=== PATIENT | female | born 2000 | race Caucasian/White ===

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

== ENCOUNTER 2019-09-12 09:34 | Emergency (ER) | payer BC, OTHER ==
[2019-09-12 10:04] VITALS: PULSE 107
--- NOTE | 2019-09-12 10:41 | EDM.PDOC ---
ED HPI GENERAL MEDICAL PROBLEM - General Chief Complaint: Respiratory Problem Stated Complaint: COUGH,SOB, SORE THROAT Time Seen by Provider: 09/12/19 10:00 Source of Information: Reports: Patient History Limitations: Reports: No Limitations - History of Present Illness INITIAL COMMENTS - FREE TEXT/NARRATIVE: Lavonne comes into [facility] ED for Covid 19 screening. She has had some loss of sense of taste, a cough for 3 days, nonproductive, and without fever or SOB. She has had close exposures to a friend with + Covid 19 report and their children. She has no other comorbidities, and is a smoker. Upper & lower back Pain Score (Numeric/FACES): 4 - Related Data Allergies Allergy/AdvReac Type Severity Reaction Status Date / Time vicodin Allergy Hives Uncoded 09/12/19 09:58 Home Meds: Home Meds hydrOXYzine pamoate [Hydroxyzine Pamoate] 25 mg PO Q6HR PRN #60 capsule [Rx] Cyclobenzaprine [Flexeril] 10 mg PO BEDTIME 09/12/19 [History] PARoxetine HCL [Paroxetine HCl] 20 mg DAILY 09/12/19 [History] Past Medical History - Past Health History Medical/Surgical History: Denies Medical/Surgical History Genitourinary History: Reports: Other (See Below) Other Genitourinary History: hx bladder spasms Musculoskeletal History: Reports: Back Pain, Chronic Psychiatric History: Reports: Anxiety, Bipolar, Depression, Panic Attack, Suicide Attempt Endocrine/Metabolic History: Reports: Obesity/BMI 30+ - Past Surgical History HEENT Surgical History: Reports: Adenoidectomy, Oral Surgery, Tonsillectomy Social & Family History - Family History Family Medical History: Noncontributory - Tobacco Use Smoking Status *Q: Current Every Day Smoker Years of Tobacco use: 4 Packs/Tins Daily: 1 - Caffeine Use Caffeine Use: Reports: Coffee, Energy Drinks, Soda, Tea - Alcohol Use Days Per Week of Alcohol Use: 2 Number of Drinks Per Day: 1 Total Drinks Per Week: 2 - Recreational Drug Use Recreational Drug Use: Yes Recreational Drug Type: Reports: Marijuana/Hashish Recreational Drug Use Frequency: Daily ED ROS GENERAL - Review of Systems Review Of Systems: Comprehensive ROS is negative, except as noted in HPI. ED EXAM, GENERAL - Physical Exam Exam: See Below Exam Limited By: No Limitations General Appearance: Alert, WD/WN, No Apparent Distress, Obese Eye Exam: Bilateral Eye: EOMI, Normal Inspection, PERRL Ears: Normal External Exam, Normal TMs Nose: Normal Inspection Throat/Mouth: Normal Inspection, Normal Lips, Normal Teeth, Normal Gums, Normal Oropharynx, Normal Voice, No Airway Compromise Head: Normocephalic Neck: Normal Inspection, Supple, Non-Tender, Full Range of Motion Respiratory/Chest: No Respiratory Distress, Lungs Clear, Normal Breath Sounds, No Accessory Muscle Use, Chest Non-Tender Cardiovascular: Regular Rate, Rhythm, No Murmur Back Exam: Normal Inspection Extremities: Normal Inspection Neurological: Alert, Oriented, CN II-XII Intact, Normal Cognition, Normal Gait, No Motor/Sensory Deficits Psychiatric: Normal Affect, Normal Mood Skin Exam: Warm, Dry, Intact, Normal Color, No Rash Lymphatic: No Adenopathy Course - Vital Signs Text/Narrative:: A Covid 19 swab was performed. No other tests or meds were administered. Last Recorded V/S: Last Vital Signs Temp 36.7 C 09/12/19 09:49 Pulse 107 H 09/12/19 09:49 Resp 18 09/12/19 09:49 BP 118/65 09/12/19 09:49 Pulse Ox 100 09/12/19 09:49 - Orders/Labs/Meds Orders: Active Orders 24 hr Category Date Time Status CORONAVIRUS COVID-19, NGOZI Routine Lab 09/12/19 10:30 Received INPATIENT Routine Lab 09/12/19 10:30 Received Departure - Departure Time of Disposition: 10:40 Disposition: Home, Self-Care 01 Condition: Good Clinical Impression: Bronchitis, Cough with exposure to COVID-19 virus - Discharge Information *PRESCRIPTION DRUG MONITORING PROGRAM REVIEWED*: Not Applicable *COPY OF PRESCRIPTION DRUG MONITORING REPORT IN PATIENT XI: Not Applicable Instructions: Cough, Adult, [id number] Forms: ED Department Discharge Additional Instructions: Activity as tolerated. Increase fluids. Tylenol as needed for pain or fever. Will receive call when lab results are back. Follow up with regular MD at clinic as needed. Sepsis Event Note - Evaluation Sepsis Screening Result: No Definite Risk - Focused Exam Vital Signs: Vital Signs Temp Pulse Resp BP Pulse Ox 09/12/19 09:49 36.7 C 107 H 18 118/65 100 Date Exam was Performed: 04/25/20 Time Exam was Performed: 10:36 - Problem List & Annotations (1) Bronchitis SNOMED Code(s): 78074033 Code(s): J40 - BRONCHITIS, NOT SPECIFIED ACUTE OR CHRONIC Status: Acute Annotation/Comment:: Mild bronchitis, may be related to Covid 19 exposure, screening performed. I advised sxs cares and stay at home status pending results. (2) Cough with exposure to COVID-19 virus SNOMED Code(s): 71608880 Code(s): R05 - COUGH; Z20.828 - CONTACT W AND EXPOSURE TO OTH VIRAL COMMUNICABLE DISEASES Status: Acute Annotation/Comment:: Covid 19 screening performed, and will continue stay at home status pending results. - Problem List Review Problem List Initiated/Reviewed/Updated: Yes - My Orders Last 24 Hours: My Active Orders 09/12/19 10:30 CORONAVIRUS COVID-19, NGOZI Routine INPATIENT Routine - Assessment/Plan Last 24 Hours: My Active Orders 09/12/19 10:30 CORONAVIRUS COVID-19, NGOZI Routine INPATIENT Routine Plan: Follow up with Covid 19 results available.
[2019-09-12 11:09] VITALS: BP 122/74
== END 2019-09-12 10:42 | disposition home or self-care (01) ==
LOC: FB.ED 09:34
DX: J40 Bronchitis, not specified as acute or chronic (principal); Z20.828 Contact with and (suspected) exposure to other viral communicable diseases; E66.9 Obesity, unspecified; F31.9 Bipolar disorder, unspecified; F41.9 Anxiety disorder, unspecified; F17.210 Nicotine dependence, cigarettes, uncomplicated; Z88.6 Allergy status to analgesic agent
CPT/HCPCS: 99283; U0002

== ENCOUNTER 2020-06-13 18:33 | Emergency (ER) | payer OTHER ==
[2020-06-13 19:03] VITALS: BP 124/70; PULSE 128
[2020-06-13] MEDS ORDERED: cefTRIAXone 2 GM Vial IVPUSH STA (19:08)
[2020-06-13] MEDS ORDERED: Sulfamethoxazole/Trimethoprim 800-160 MG Tab PO STA (19:08)
[2020-06-13] MEDS ORDERED: Ketorolac 30 MG/ML SDV IVPUSH STA (19:12)
--- NOTE | 2020-06-13 19:17 | EDM.PDOC ---
ED HPI GENERAL MEDICAL PROBLEM - General Chief Complaint: General Stated Complaint: SPIDER BITE Time Seen by Provider: 06/13/20 19:00 Source of Information: Reports: Patient History Limitations: Reports: No Limitations - History of Present Illness INITIAL COMMENTS - FREE TEXT/NARRATIVE: Patient presented to the ED because of erythema, swelling, pain over the right lower quadrant of her abdomen. It started as a tiy boil 3 days ago which she poked and it progressed to a cellulitis. There is no associated fever,chills. She is otherwise heathy and is not taking any medication. 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(s) Right Lower Abdomen Pain Score (Numeric/FACES): 5 - Related Data Allergies Allergy/AdvReac Type Severity Reaction Status Date / Time vicodin Allergy Hives Uncoded 06/13/20 18:52 Home Meds: Home Meds Sulfamethoxazole/Trimethoprim [Bactrim Ds Tablet] 1 each PO BID #20 tablet 06/13/20 [Rx] Past Medical History - Past Health History Medical/Surgical History: Denies Medical/Surgical History Genitourinary History: Reports: Other (See Below) Other Genitourinary History: hx bladder spasms Musculoskeletal History: Reports: Back Pain, Chronic Psychiatric History: Reports: Anxiety, Bipolar, Depression, Panic Attack, Suicide Attempt Endocrine/Metabolic History: Reports: Obesity/BMI 30+ - Past Surgical History HEENT Surgical History: Reports: Adenoidectomy, Oral Surgery, Tonsillectomy Social & Family History - Family History Family Medical History: No Pertinent Family History - Tobacco Use Tobacco Use Status *Q: Current Every Day Tobacco User Years of Tobacco use: 4 Packs/Tins Daily: 0.5 - Caffeine Use Caffeine Use: Reports: Coffee, Soda - Recreational Drug Use Recreational Drug Use: No ED ROS GENERAL - Review of Systems Review Of Systems: See Below Constitutional: Reports: No Symptoms HEENT: Reports: No Symptoms Respiratory: Reports: No Symptoms Cardiovascular: Reports: No Symptoms Endocrine: Reports: No Symptoms GI/Abdominal: Reports: No Symptoms : Reports: No Symptoms Musculoskeletal: Reports: No Symptoms Skin: Reports: Erythema Neurological: Reports: No Symptoms Psychiatric: Reports: No Symptoms ED EXAM, GENERAL - Physical Exam Exam: See Below Exam Limited By: No Limitations General Appearance: Alert, No Apparent Distress Eye Exam: Bilateral Eye: PERRL Ears: Normal External Exam, Normal Canal Nose: Normal Inspection, Normal Mucosa Throat/Mouth: Normal Inspection, Normal Lips, Normal Teeth Head: Atraumatic, Normocephalic Neck: Normal Inspection, Supple, Non-Tender, Full Range of Motion Respiratory/Chest: No Respiratory Distress, Lungs Clear, Normal Breath Sounds Cardiovascular: Normal Peripheral Pulses, Regular Rate, Rhythm, No Edema, No Gallop, No JVD, No Murmur, No Rub GI/Abdominal: Normal Bowel Sounds, Soft, No Organomegaly (Female) Exam: Normal External Exam, Normal Speculum Exam Back Exam: Normal Inspection, Full Range of Motion Extremities: Normal Inspection, Normal Range of Motion, Non-Tender Neurological: Alert, Oriented, CN II-XII Intact, Normal Cognition, Normal Gait Skin Exam: Warm, Erythema Course - Vital Signs Text/Narrative:: Lab result was discussed with patient Rocephin 2 gm IV Toradol 30 mg IV x1 Bactrim DS 1 po x1 Last Recorded V/S: Last Vital Signs Temp 37.2 C 06/13/20 18:33 Pulse 128 H 06/13/20 18:33 Resp 18 06/13/20 18:33 BP 124/70 06/13/20 18:33 Pulse Ox 96 06/13/20 18:33 - Orders/Labs/Meds Labs: Laboratory Tests 06/13/20 06/13/20 Range/Units 19:15 19:15 WBC 17.0 H (3.0-10.3) x10-3/uL RBC 4.65 (3.60-5.20) x10(6)uL Hgb 13.4 (11.4-15.5) g/dL Hct 40.9 (34.2-48.2) % MCV 87.9 (76.7-100.5) fL MCH 28.8 (23.9-33.9) pg MCHC 32.7 (31.9-34.8) g/dL RDW 13.3 (12.3-16.5) % Plt Count 307 (151-488) x10(3)uL MPV 8.4 (7.1-12.4) fL Add Manual Diff Yes Neutrophils % (Manual) 76 (46-82) % Band Neutrophils % 1 (0-6) % Lymphocytes % (Manual) 15 (13-37) % Monocytes % (Manual) 8 (4-12) % Sodium 138 (135-145) mmol/L Potassium 3.7 (3.5-5.3) mmol/L Chloride 102 (100-110) mmol/L Carbon Dioxide 27 (21-32) mmol/L BUN 6 L (7-18) mg/dL Creatinine 0.8 (0.55-1.02) mg/dL Est Cr Clr Drug Dosing 103.26 mL/min Estimated GFR (MDRD) > 60 (>60) BUN/Creatinine Ratio 7.5 L (9-20) Glucose 93 (80-116) mg/dL Calcium 8.4 L (8.6-10.2) mg/dL Meds: Medications Discontinued Medications Generic Name Dose Route Start Last Admin Trade Name Juan Franciscoq PRN Reason Stop Dose Admin Ceftriaxone Sodium 2 gm 06/13/20 19:08 Rocephin IVPUSH 06/13/20 19:09 NOW STA Ketorolac Tromethamine 30 mg 06/13/20 19:12 Toradol IVPUSH 06/13/20 19:13 NOW STA Trimethoprim/Sulfamethoxazole 1 tab 06/13/20 19:08 Septra Ds PO 06/13/20 19:09 NOW STA Departure - Departure Time of Disposition: 20:00 Disposition: Home, Self-Care 01 Condition: Good Clinical Impression: Cellulitis - Discharge Information Prescriptions: Sulfamethoxazole/Trimethoprim [Bactrim Ds Tablet] 1 each PO BID #20 tablet Instructions: Cellulitis, Adult Referrals: Sharlene Neely NP [Primary Care Provider] - Forms: ED Department Discharge Additional Instructions: Please read discharge instructions on cellulitis Take ibuprofen 800 mg with tylenol 1000 mg every 8 hours as needed for pain Bactrim DS twive daily for 10 days Return to the ED twice daily @ 7 pm on Saturday and Saturday Sepsis Event Note (ED) - Evaluation Sepsis Screening Result: Possible Sepsis Risk - Focused Exam Vital Signs: Vital Signs Temp Pulse Resp BP Pulse Ox 06/13/20 18:33 37.2 C 128 H 18 124/70 96
[2020-06-14] MEDS ORDERED: Ketorolac 30 MG/ML SDV IVPUSH STA (19:17)
[2020-06-14] MEDS ORDERED: Acetaminophen 500 MG Tab PO ONE (19:20)
== END 2020-06-13 20:10 | disposition home or self-care (01) ==
LOC: FB.ED 18:33
DX: L03.311 Cellulitis of abdominal wall (principal); E66.9 Obesity, unspecified; Z68.37 Body mass index [BMI] 37.0-37.9, adult; Z72.0 Tobacco use
CPT/HCPCS: 36415; 80048; 85025; 96374; 96375; 99283; 99283-25; A9270-GY; J0696; J1885

== ENCOUNTER 2021-08-31 21:42 | Emergency (ER) | payer SELFPAY ==
[2021-08-31] MEDS ORDERED: Sodium Chloride 0.9% 10 ML Syringe FLUSH PRN (21:58)
[2021-08-31] MEDS ORDERED: Ketorolac 30 MG/ML SDV IVPUSH ONE (22:02)
[2021-08-31] MEDS ORDERED: Ondansetron 4 MG/2 ML SDV IVPUSH ONE (22:02)
[2021-08-31] MEDS ORDERED: Morphine 4 MG/ML VIAL IVPUSH ONE (22:02)
[2021-08-31] MEDS ORDERED: Sodium Chloride 0.9% 1,000 ML IV SCH (22:15)
[2021-08-31] MEDS ORDERED: Iopamidol 755 Mg/ML 100 ML Bottle IV ONE (22:40)
[2021-08-31] MEDS ORDERED: Iopamidol 755 MG/ML 150 ML Bottle IV ONE (22:41)
[2021-08-31] MEDS ORDERED: Sulfamethoxazole/Trimethoprim 800-160 MG Tab PO STA (22:46)
[2021-09-01 00:09] VITALS: BP 124/78; PULSE 78
== END 2021-09-01 00:05 | disposition home or self-care (01) ==
LOC: FB.ED 21:42
DX: K80.20 Calculus of gallbladder without cholecystitis without obstruction (principal); N39.0 Urinary tract infection, site not specified; E66.9 Obesity, unspecified; Z88.8 Allergy status to other drugs, medicaments and biological substances; Z72.0 Tobacco use; Z68.37 Body mass index [BMI] 37.0-37.9, adult
CPT/HCPCS: 36415; 74177; 80053; 81001; 81025; 82150; 83690; 85025; 87086; 96374; 96375; 99284; 99284-25; A9270-GY; J1885; J2270; J2405; J3490; J7030; Q9967

== ENCOUNTER 2022-04-08 19:51 | Emergency (ER) | payer BC, OTHER ==
[2022-04-08 20:06] VITALS: BP 138/86; PULSE 110
[2022-04-08] MEDS ORDERED: cloNIDine 0.1 MG Tab PO ONE (20:11)
== END 2022-04-08 20:30 | disposition home or self-care (01) ==
LOC: FB.ED 19:51
DX: F11.23 Opioid dependence with withdrawal (principal); E66.9 Obesity, unspecified; Z88.5 Allergy status to narcotic agent; Z68.37 Body mass index [BMI] 37.0-37.9, adult
CPT/HCPCS: 99283; A9270-GY

== ENCOUNTER 2023-02-02 22:36 | Emergency (ER) | payer BC ==
[2023-02-02] MEDS ORDERED: Amoxicillin/Clavulanate K 875-125 MG Tab PO ONE (22:37)
[2023-02-02] MEDS ORDERED: Lidocaine 2% Viscous Solution 15 ML UD PO ONE (23:02)
[2023-02-03 00:35] VITALS: BP 104/77; PULSE 96
== END 2023-02-02 23:43 | disposition home or self-care (01) ==
LOC: FB.ED 22:36
DX: K03.81 Cracked tooth (principal); K02.9 Dental caries, unspecified; Z88.5 Allergy status to narcotic agent
CPT/HCPCS: 99282; A9270

== ENCOUNTER 2023-03-09 19:13 | Emergency (ER) | payer BC ==
[2023-03-09] MEDS ORDERED: Codeine/guaiFENesin 100mg-10 MG/5 ML Soln 118 ML Bottle PO ONE (19:14)
[2023-03-09 19:36] VITALS: BP 120/79; PULSE 94
== END 2023-03-09 19:48 | disposition home or self-care (01) ==
LOC: FB.ED 19:13
DX: R05.2 Subacute cough (principal); E66.9 Obesity, unspecified; Z68.33 Body mass index [BMI] 33.0-33.9, adult; Z88.5 Allergy status to narcotic agent
CPT/HCPCS: 99283; A9270